=== PATIENT | female | born 1935 | race American Indian/Alaskan Native ===

== ENCOUNTER 2017-02-07 08:17 | Outpatient (CLI) | payer MEDICARE ==
[2017-02-07] MEDS ORDERED: XYLOCAINE TOPICAL 4% TP ONE ×2 (08:59→09:57)
[2017-02-07] MEDS ORDERED: NACL 0.9% IR ONE (08:59)
== END 2017-02-07 08:18 | disposition home or self-care (01) ==
LOC: EDBD → WOUND 08:17
PROVIDERS: ATTEND Internal Medicine
DX: I87.2 Venous insufficiency (chronic) (peripheral) (principal); L97.511 Non-pressure chronic ulcer of other part of right foot limited to breakdown of skin; L97.521 Non-pressure chronic ulcer of other part of left foot limited to breakdown of skin; M19.90 Unspecified osteoarthritis, unspecified site; I10 Essential (primary) hypertension; M06.9 Rheumatoid arthritis, unspecified; G62.9 Polyneuropathy, unspecified; Z90.710 Acquired absence of both cervix and uterus
CPT/HCPCS: 99205; G0463